=== PATIENT | female | born 1990 | race Caucasian/White ===

== ENCOUNTER 2018-06-19 11:58 | Inpatient (IN) ==
[2018-06-19] MEDS ORDERED: Famotidine 20 MG/2 ML VIAL IVP ONE (12:16)
[2018-06-19] MEDS ORDERED: Metoclopramide 10 MG/2 ML VIAL IVP ONE (12:16)
[2018-06-19] MEDS ORDERED: CeFAZolin Premix DUPLEX 2,000 MG/50 ML BAG IVPB ONE (12:16)
[2018-06-19] MEDS ORDERED: Ringers Solution, Lactated 1,000 ML IVC ONE (12:16)
[2018-06-19 12:49] LABS: Basophils % 0.4 %; Eosinophils # 0.1 K/mcL (0.0-0.6); Eosinophils % 0.9 %; Hematocrit 39.5 % (35.3-44.9); Hemoglobin 13.5 g/dL (11.5-15.4); Immature Granulocytes % 0.7 % (0-4); Lymphocytes # 1.5 K/mcL (0.6-4.6); Lymphocytes % 14.8 %; Mean Corpuscular HGB Conc 34.2 g/dL (31.6-35.5); Mean Corpuscular Hemoglobin 30.5 pg (28.0-33.3); Mean Corpuscular Volume 89.4 fL (83.0-100.0); Mean Platelet Volume 10.5 fL (9.4-12.4); Monocytes # 0.8 K/mcL (0.0-1.3); Monocytes % 7.3 %; Neutrophils # 7.8 K/mcL (1.6-8.9); Platelet Count 228 K/mcL (140-400); Red Blood Count 4.42 M/mcL (3.82-4.97); Red Cell Distribution Width 13.2 % (11.5-14.5); Segmented Neutrophils % 75.9 %
[2018-06-19] MEDS ORDERED: Ringers Solution, Lactated 1,000 ML ONE ×2 (13:14→15:45)
[2018-06-19 13:19] LABS: Amphetamine Screen,Urine Negative ng/mL (Cutoff=1000); Barbiturate Screen,Urine Negative ng/mL (Cutoff=200); Benzodiazepines Screen,Urine Negative ng/mL (Cutoff=200); Cannabinoid Screen,Urine Negative ng/mL (Cutoff = 50); Cocaine Screen,Urine Negative ng/mL (Cutoff= 300); Opiate Screen,Urine Negative ng/mL (Cutoff=300); Phencyclidine Screen,Urine Negative ng/mL (Cutoff=25)
--- NOTE | 2018-06-19 13:19 | Anesthesia Evaluation PreOp ---
Date of Encounter: 06/19/18 Time of Encounter: 13:14 - Past History Planned Operation: csection Cardiac History: Denies any Significant Hx Pulmonary History: Former smoker (quit during pregnancty) TELEPHONE SALES REPRESENTATIVE History: Denies Any Significant HX Other Medical History: Thyroid (Graves disease with subsequent radiation treatment, now hypothyroid), GERD Anesthesia History: No Prior Anesthetic Complications, Past Anesthesia (3 prior csections) : Yes () Alcohol Use: none Drug use: none Medications and Allergies Levothyroxine 175 mcg PO DAILY 05/02/16 [History] [id number]/Iron Fumarate/FA/Dss [ 19 Tablet] 1 each PO 06/19/18 [History] 3 Allergy/AdvReac Type Severity Reaction Status Date / Time Penicillins [PCN] Allergy Hives Verified 05/26/17 17:56 - Meds/Allergy Pre-op Review Medications Reviewed: Yes Allergies Reviewed: Yes Beta Blockers on Current Med List: No Anesthesia Results - Labs 06/19/18 12:25 Anesthesia Exam O2 Sat Height 1.7 m Height 1.7 m Weight 80.83 kg Weight 80.83 kg bp 119/62 hr 73 Height: 67 Weight: 178 NPO (# of Hours): greater than 8 hours - HEENT Pupil (Motor): Pupils equal Mallampati: II Teeth: Normal Oral Opening: Greater than 3 - TELEPHONE SALES REPRESENTATIVE LOC: Oriented TELEPHONE SALES REPRESENTATIVE Motor: Normal RUE, Normal LUE, Normal RLE, Normal LLE, Normal Face TELEPHONE SALES REPRESENTATIVE Sensory: Normal: RUE, LUE, RLE, LLE, Face - Cardiac Rhythm: Regular Murmur: None JVD: No Carotid Bruit: No - Pulmonary Breath Sounds: bilateral Clear Respiratory Effort: Symmetrical Anesthesia Assess/Plan ASA Score: 2 Modified [place] Scale for Level of Consciousness: Cooperative, oriented, and tranquil Anesthetic Plan: Regional Monitoring Plan: Standard Monitors Recovery Plan: PACU
[2018-06-19] MEDS ORDERED: *HR* Morphine Sulfate/PF 10 MG/10 ML AMPUL ONE (13:28)
[2018-06-19] MEDS ORDERED: *HR* FentaNYL (PF) 100 MCG/2 ML VIAL ONE (13:28)
[2018-06-19] MEDS ORDERED: Lidocaine -MPF 2% 5 ML VIAL ONE (13:30)
--- NOTE | 2018-06-19 15:02 | History & Physical Report ---
Date of Encounter: 06/19/18 Time of Encounter: 15:00 24 Hour HP Update - Instructions Instructions: If the History and Physical is less than 30 days old and was completed prior to A.M. admission and or procedure and has NOT been updated on calendar day of procedure please complete this update prior to performing procedure. - Update Patient reports changes in Medical Condition: No Changes in examination, assessment, or condition: No Changes in Medication: No Preop tests/diagnostics Reviewed: Yes Pre-Op MRSA Screen: Negative Surgery Remains Indicated: Yes Consent for Planned Operative Procedure(s) Verified: Yes Review of Patient reveals the following changes:: none - Pre-Operative Checklist Preoperative Checklist Indicated: Yes Prophylactic Antibiotic Ordered: Yes Home Medications Include Beta Tabitha: No Beta Tabitha Taken Today (Day of Surgery): No Beta Tabitha Taken Yesterday (Day Prior to Surgery): No Is VTE Prophylaxis Indicated?: Yes
[2018-06-19] MEDS ORDERED: *HR* Phenylephrine 10 MG/ML VIAL ONE (15:19)
[2018-06-19] MEDS ORDERED: *HR* Oxytocin 10 UNIT/ML VIAL IM ONE ×2 (15:39→15:46)
[2018-06-19] MEDS ORDERED: *HR* Morphine 2 MG/ML SYRINGE IVP PRN (15:51)
[2018-06-19] MEDS ORDERED: *HR* OxyCODONE Immed Rel 5 MG TABLET PO PRN (15:51)
[2018-06-19] MEDS ORDERED: *HR* Promethazine 25 MG/ML VIAL IVP PRN (15:51)
[2018-06-19] MEDS ORDERED: Ondansetron 4 MG/2 ML VIAL ONE (15:52)
--- NOTE | 2018-06-19 16:18 | OB/GYN Procedure Note ---
Section - Date of procedure: 06/19/18 Preop diagnosis: desires repeat , other Post-op diagnosis: same Procedure: repeat low transverse, bilateral tubal ligation Surgeon: Jose Moreno Blood Loss: 400 Was there an assistant cook present: No Boardmarker: Teddy Rodriguez Anesthesia Type: Spinal section complications: none Disposition: Post floor Specimens: Placenta, Right tube segment, Left tube segment - (s) Infant A Delivery Date: 06/19/18 Delivery Time: 15:39 Presentation: vertex Position: OA Route of delivery: vacuum extraction Gender: Female Viability: Viable Pounds: 6 Ounces: 8 Gram Weight: 2.945 kg at 1 minute: 8 at 5 minutes: 9 Shoulder Dystocia: not encountered Placenta: spontaneous Cord: 3 umbilical vessels - Narrative Narrative: Pt is a 28 -year-old female scheduled for repeat section and tubal ligation. Preoperative consent was obtained. Discussed the risk of anesthesia bleeding infection damage to internal organs. Patient understands risks of failure of the tubal ligation including ectopic pregnancies. She wishes to proceed. Procedure she was taken to the operating room with an IV in place. She was then given spinal anesthesia. She was then prepped and draped in the usual sterile fashion. Once adequate analgesia was achieved a Pfannenstiel incision was made through patient's previous scar. It was carried sharply through the subcutaneous taste and fatty tissue to the fascial layers reached. The fascia was then nicked in the midline and incised bilaterally with Sabillon scissors. The rectus abdominis musculature is and bluntly. A bladder blade was placed at the inferior margin incision the bladder flap is developed. A low transverse incision was then made in the lower uterine segment. Fluid was noted to be clear. The incision was delivered with assistance of vacuum. The rest of the infant was then delivered easily. After 60 seconds the cord was clamped cut the infant was in past nurse attendants cord bloods obtained. Placenta is alert. Uterine massage and lavage. The uterus is delivered. Uterine lavage performed. The incision was closed with a locked suture in a running locking fashion. One olubyl-un-dirrs was placed for final hemostasis. At this point the bilateral tubal ligation was performed. The right fallopian tube was located and followed to fimbriated. The portion of tube grasped in avascular portion of mesosalpinx was located. Through this a piece of suture was placed time with the proximal distal portion of tube. A second piece of open sutures placed. The portion was removed and the edges cauterized. The left fallopian tubes and followed to the fimbriated end. This tube was firmly adherent down to the uterus. The only option for this tube was a fimbriectomy. The fimbria was elevated and it was tied off 2. The fimbria Was removed completely. The edges were cauterized. There was no bleeding noted. With this being done the uterus was placed the pelvic cavity. The pelvic cavity concern sterile water 2 all bleeders cauterized. Subfascial region was given. There is no bleeding noted. The fascia was then closed with 0 Vicryl suture in a running nonlocking fashion. The suprafascial region service early sterile water testing all bleeders cauterized the skin was then closed with noemi. Estimated blood loss 400 mL patient delivered a female infant weight 6 lbs. 8 oz. with Apgars of 8 at 1 minute and 9 at 5 minutes.
[2018-06-19] MEDS ORDERED: Oxytocin 20 units/ LR 1000 mL 20 UNIT/1,000 ML BAG IVC ONE (18:11)
[2018-06-19] MEDS ORDERED: Sennosides 8.6 MG TABLET PO PRN (18:25)
[2018-06-19] MEDS ORDERED: Metoclopramide 10 MG/2 ML VIAL IVP PRN (18:25)
[2018-06-19] MEDS ORDERED: Ondansetron 4 MG/2 ML VIAL IVP PRN (18:25)
[2018-06-19] MEDS ORDERED: Oxytocin 20 units/ LR 1000 mL 20 UNIT/1,000 ML BAG IVC SCH (18:25)
[2018-06-19] MEDS: *HR* OxyCODONE/APAP 5/325 TABLET PO PRN (20:33)
[2018-06-19] MEDS: Ibuprofen 600 MG TABLET PO PRN (21:37)
[2018-06-20] MEDS: ceFAZolin 1,000 MG in 0.9 % Sodium Chloride Mini Bag 100 ML IVPB SCH ×3 (00:13→16:04)
[2018-06-20] MEDS: *HR* OxyCODONE/APAP 5/325 TABLET PO PRN ×6 (00:33→20:11)
[2018-06-20] MEDS: Simethicone 80 MG TAB.CHEW PO PRN ×2 (00:33→08:00)
[2018-06-20 00:52] LABS: Basophils % 0.2 %; Eosinophils # 0.1 K/mcL (0.0-0.6); Eosinophils % 0.7 %; Hematocrit 32.9 % (35.3-44.9); Immature Granulocytes % 0.4 % (0-4); Lymphocytes # 1.4 K/mcL (0.6-4.6); Lymphocytes % 12.1 %; Mean Corpuscular HGB Conc 33.7 g/dL (31.6-35.5); Mean Corpuscular Hemoglobin 30.2 pg (28.0-33.3); Mean Corpuscular Volume 89.4 fL (83.0-100.0); Mean Platelet Volume 10.3 fL (9.4-12.4); Monocytes # 0.4 K/mcL (0.0-1.3); Monocytes % 3.9 %; Neutrophils # 9.4 K/mcL (1.6-8.9); Platelet Count 164 K/mcL (140-400); Red Blood Count 3.68 M/mcL (3.82-4.97); Red Cell Distribution Width 13.1 % (11.5-14.5); Segmented Neutrophils % 82.7 %
[2018-06-20 00:57] LABS: Hemoglobin 11.1 g/dL (11.5-15.4)
[2018-06-20] MEDS: Ibuprofen 600 MG TABLET PO PRN ×3 (03:35→20:11)
[2018-06-20] MEDS: Prenatal Vit/FA 1 EACH TABLET PO SCH (07:59)
--- NOTE | 2018-06-20 09:03 | OB/GYN Progress Note ---
Date of Encounter: 06/20/18 Time of Encounter: 09:00 - Assessment and Plan (1) S/P repeat low transverse Current Visit: Yes Status: Acute Pt currently stable POD#1 Continue current management plan Anticipate discharge tomorrow (2) S/P tubal ligation Current Visit: Yes Status: Acute Subjective - Subjective Principal diagnosis: Repeat low Transverse Section/ Bilateral Tubal Ligation Interval history: Pt seen and examined at bedside s/p section with b/l tubal ligation Pain adequately controlled Reports moderate but improving lochia Has yet to void post-op, baugh recently removed; Has yet to pass flatus, tolerates PO diet without difficulty Plans to bottle feed Patient reports: appetite normal, pain well controlled, ambulating normally [place]: doing well, bottle feeding Objective - Vital Signs Latest vital signs: Vital Signs Temp Pulse Resp BP Pulse Ox 06/20/18 07:40 97.7 F 74 12 100/58 96 06/20/18 05:19 98.1 F 72 16 100/54 98 06/20/18 00:14 97.5 F L 60 16 110/64 98 06/19/18 21:45 98.0 F 64 16 109/55 97 06/19/18 20:22 97.7 F 72 16 112/64 98 06/19/18 19:15 97.6 F 59 16 163/63 98 06/19/18 18:48 97.4 F L 58 16 107/65 99 06/19/18 18:15 97.5 F L 57 16 112/68 99 Intake and Output 06/19/18 06/20/18 06/20/18 23:59 07:59 15:59 Intake Total 0 / 0 100 / 100 100 / 100 Output Total 600 / 600 550 / 550 Balance -600 / -600 -450 / -450 100 / 100 Intake: IV Fluids 100 / 100 100 / 100 Ancef 1,000 MG In 0.9 % Sodium 100 / 100 100 / 100 Chloride (Mini-Bag +) 100 ML @ 200 mls/hr IVPB Q8HR [facility] Rx#: [id number] Oral 0 / 0 0 / 0 Output: Catheter 600 / 600 550 / 550 Other: Weight 78.5 kg 79.832 kg Patient Weight 06/20/18 23:59 Weight 79.832 kg - Exam Lungs: bilateral: normal Chest: Normal S1, Normal S2 Extremities: Present: normal Abdomen: Present: normal appearance, soft, gravid Incision: Present: normal, dry, dressed (No drainage on dressing) Uterus: Present: firm (At U) - Labs Labs: Laboratory Results - last 24 hr 06/19/18 06/19/18 06/20/18 12:25 12:25 00:37 WBC 10.3 11.4 H RBC 4.42 3.68 L Hgb 13.5 11.1 L D Hct 39.5 32.9 L MCV 89.4 89.4 MCH 30.5 30.2 MCHC 34.2 33.7 RDW 13.2 13.1 Plt Count 228 164 MPV 10.5 10.3 Immature Gran % 0.7 0.4 Seg Neutrophils % 75.9 82.7 Lymphocytes % 14.8 12.1 Monocytes % 7.3 3.9 Eosinophils % 0.9 0.7 Basophils % 0.4 0.2 Neutrophils # 7.8 9.4 H Lymphocytes # 1.5 1.4 Monocytes # 0.8 0.4 Eosinophils # 0.1 0.1 Basophils # 0.0 0.0 Urine Opiates Screen Negative Ur Barbiturates Screen Negative Ur Phencyclidine Scrn Negative Ur Amphetamines Screen Negative U Benzodiazepines Scrn Negative Urine Cocaine Screen Negative U Marijuana (THC) Screen Negative Ur Drug Screen Interp See Below
[2018-06-21] MEDS: *HR* OxyCODONE/APAP 5/325 TABLET PO PRN ×3 (00:13→08:50)
[2018-06-21 07:50] VITALS: BP 113/70
[2018-06-21] MEDS: Prenatal Vit/FA 1 EACH TABLET PO SCH (08:14)
[2018-06-21] MEDS: Ibuprofen 600 MG TABLET PO PRN (08:14)
--- NOTE | 2018-06-21 10:15 | Discharge Summary ---
Date of Encounter: 06/21/18 Time of Encounter: 10:09 - Discharge Diagnosis (1) S/P repeat low transverse Priority: Primary Status: Acute Comments: Continue routine postop care Patient to follow up in 1 week for staple removal Patient to follow up with Dr. Barry Will start Keflex for prophylaxis per Dr. Barry's request (2) S/P tubal ligation Priority: Secondary Status: Acute Comments: continue routine postop care - Discharge Medications Prescriptions: OxyCODONE/APAP 5/325 [Percocet 5/325 MG] 1 each PO Q4HR PRN 5 Days #30 tablet PRN Reason: Moderate pain 4-6 Ibuprofen [Motrin] 600 mg PO Q6HR PRN #60 tablet PRN Reason: Cramping Cephalexin [Keflex] 500 mg PO BID 5 Days #10 capsule Docusate [Colace] 100 mg PO BID #30 capsule Home Medications: [id number]/Iron Fumarate/FA/Dss [ 19 Tablet] 1 each PO 06/19/18 [History] Cephalexin [Keflex] 500 mg PO BID 5 Days #10 capsule 06/21/18 [Rx] Docusate [Colace] 100 mg PO BID #30 capsule 06/21/18 [Rx] Ibuprofen [Motrin] 600 mg PO Q6HR PRN #60 tablet 06/21/18 [Rx] Levothyroxine [Synthroid] 175 m[place] PO 0630 tablet 06/21/18 [Rx] OxyCODONE/APAP 5/325 [Percocet 5/325 MG] 1 each PO Q4HR PRN 5 Days #30 tablet [Rx] Allergies/Adverse Reactions: 3 Allergy/AdvReac Type Severity Reaction Status Date / Time Penicillins [PCN] Allergy Hives Verified 05/26/17 17:56 Data Procedures and tests throughout hospitalization: Laboratory Tests 06/19/18 06/19/18 06/20/18 12:25 12:25 00:37 WBC 10.3 11.4 H RBC 4.42 3.68 L Hgb 13.5 11.1 L D Hct 39.5 32.9 L MCV 89.4 89.4 MCH 30.5 30.2 MCHC 34.2 33.7 RDW 13.2 13.1 Plt Count 228 164 MPV 10.5 10.3 Immature Gran % 0.7 0.4 Seg Neutrophils % 75.9 82.7 Lymphocytes % 14.8 12.1 Monocytes % 7.3 3.9 Eosinophils % 0.9 0.7 Basophils % 0.4 0.2 Neutrophils # 7.8 9.4 H Lymphocytes # 1.5 1.4 Monocytes # 0.8 0.4 Eosinophils # 0.1 0.1 Basophils # 0.0 0.0 Urine Opiates Screen Negative Ur Barbiturates Screen Negative Ur Phencyclidine Scrn Negative Ur Amphetamines Screen Negative U Benzodiazepines Scrn Negative Urine Cocaine Screen Negative U Marijuana (THC) Screen Negative Ur Drug Screen Interp See Below Date of admission: 06/19/18 11:58 Primary care physician: Yanick Alvarado MD Discharging clinician: Maria Teresa Flores Anticipated date of discharge: 06/21/18 - Patient Status Disposition: Home, Self-Care Condition: Good - Discharge Instructions Follow Up With: Yanick Alvarado MD [Primary Care Provider] - Jose Barry MD [Partnered Physician] - - Diet and Activity Activity: increase activity as tolerated Diet: regular diet Hospital Course Procedures: [facility] report reviewed by THEODORE Bullock Reason for admission: section Delivery: section Episiotomy: none Laceration: none Other procedures: tubal ligation complications: none Discharge diagnosis: IUP at term delivered [place] baby: female (bottle feeding) Time Attestation: Total time spent providing and/or coordinating discharge services: Time Spent: Less than 30 minutes - VTE Reasons for not Prescribing Prophylaxis: Treatment not Indicated - Low risk for VTE Documentation of Mechanical Device: Intermittent pneumatic compression device Exam - Constitutional Vitals: Temp Pulse Resp BP Pulse Ox 97.6 F 64 16 113/70 96 06/21/18 07:49 06/21/18 07:49 06/21/18 07:49 06/21/18 07:49 06/20/18 20:08 General appearance IM: A&O X 3, pleasant, answers questions appropriately - Respiratory Respiratory exam: Present: CTAB - Cardiovascular Cardiovascular exam IM: Present: RRR, +S1, +S2 - GI/Abdominal GI/Abdominal exam IM: normal bowel sounds Incision: normal, dry, intact, other (noemi) - Uterine Tone: Firm Uterus Position: 2 Fingers Below Umbilicus, Midline - Extremities Exam Extremities exam IM: Present: full ROM, normal capillary refill, normal inspection
== END 2018-06-21 12:30 | disposition home or self-care (01) | DRG 540 ==
LOC: 1NENULAB 11:58 → 1NENUOBS 18:24
PROVIDERS: ADMIT Obstetrics & Gynecology; ATTEND Obstetrics & Gynecology